=== PATIENT | female | born 1970 | race Caucasian/White ===

== ENCOUNTER 2022-06-11 04:48 | Outpatient (CLI) | payer OTHER, SELFPAY ==
[2022-06-11 07:52] LABS: Absolute Basophil Count 0.04 10^3/uL (0.0-0.2); Absolute Eosinophil Count 0.08 10^3/uL (0.0-0.7); Absolute Monocyte Count 0.44 10^3/uL (0.1-0.8); Absolute Neutrophil Count 2.15 10^3/uL (1.2-6.7); Basophils % 0.9; Eosinophils % 1.8; HCT 42.2 % (36.0-46.0); HGB 13.4 g/dL (11.2-15.7); Lymphocytes % 39.9; MCH 25.9 pg (27.0-33.0); MCHC 31.8 % (32.0-36.0); MCV 82 fL (80-95); MPV 10.3 fL (8.0-11.0); Monocytes % 9.8; Neutrophils % 47.6; Platelet Count 226 10^3/uL (130-400); RBC 5.17 10^6/uL (3.93-5.22); RDW 14.7 % (11.7-14.6); RDW-SD 43.8 fL; WBC 4.51 10^3/uL (4.4-10.8)
[2022-06-11 08:00] LABS: ESR 9 mm/hr (0-30)
[2022-06-11 08:58] LABS: ALT 25 U/L (14-59); AST 17 U/L (15-37); Albumin 3.8 g/dL (3.4-5.0); Alkaline Phosphatase 81 U/L (46-116); Anion Gap 5.9 mmol/L (3-11); BUN 16 mg/dL (7-18); Bilirubin, Total 0.2 mg/dL (0.2-1.0); CO2 29.1 mmol/L (21.0-32.0); CREATININE 1.1 mg/dL (0.55-1.02); Calcium 9.1 mg/dL (8.5-10.1); Calculated LDL 145 mg/dL (<100); Chloride 104 mmol/L (98-107); Cholesterol 234 mg/dL (<200); Estimated GFR 60.84 (mL/min/1.73m2); Glucose 87 mg/dL (74-106); HDL Cholesterol 70 mg/dL (40-60); Potassium 4.1 mmol/L (3.5-5.1); Sodium 139 mmol/L (136-145); TSH (W/Ref FT4) 2.09 uIU/mL (0.36-3.74); Total Protein 7.5 g/dL (6.4-8.2); Triglyceride 99 mg/dL (<150)
[2022-06-11 17:26] LABS: Rheumatoid Factor <8.6 IU/mL (<12.0)
[2022-06-12 10:20] LABS: Hepatitis C Ab w Rflx HCV PCR Negative (Negative)
[2022-06-12 10:29] LABS: HIV-1/2 Ag & Ab Screen Negative (Negative)
[2022-06-12 15:12] LABS: ANA Interpretation Negative (Negative)
== END 2022-06-11 04:49 | disposition home or self-care (01) ==
LOC: LBO 04:48
PROVIDERS: PCP Nurse Practitioner; Referring Provider Nurse Practitioner; Visit Provider Nurse Practitioner
DX: Z11.59 Encounter for screening for other viral diseases; E03.9 Hypothyroidism, unspecified; D64.9 Anemia, unspecified
CPT/HCPCS: 36415; 80053; 80061; 85652; 86803; 87389; 84443; 85025; 86038; 86431

== ENCOUNTER 2022-06-18 01:34 | Outpatient (CLI) | payer OTHER, SELFPAY ==
--- NOTE | 2022-06-18 16:00 | DI.MAMMO_ITS ---
Exam(s) MAMMO SCREENING EXAM: MAMMO SCREENING CLINICAL HISTORY: screening,Z12.39 TECHNIQUE: Bilateral full field digital CC and MLO mammographic images were obtained with 3D tomosyn thesis and utilizing computer aided detection (CAD). COMPARISON: There are no priors for comparison at this time. Should they become available, an adden dum will be issued at that time. FINDINGS: Masses/Architectural Distortion: None seen. Microcalcifications: No suspicious pleomorphic-type are seen. Benign type calcifications are seen in both breasts. Skin Thickening/Nipple Retraction: None. IMPRESSION: 1. No significant interval change with no specific features of malignancy noted. 2. Unless there is more urgent need, screening mammography is recommended, as per [employer] guidelines. BI-RADS Category 2 - Benign Findings Breast Density - Category C - Heterogeneously dense Breast density category C or D implies that the patient has dense breast tissue. Dense breast tissue is very common and is not abnormal but dense breast tissue can make it harder to find cancer on a ma mmogram. Also, dense breast tissue may increase their breast cancer risk. This information about the result of the mammogram report was provided to the patient to raise their awareness. Use this report when you speak with the patient about their risks for breast cancer, which includes their family hist ory. At that time, you may recommend for more screening tests (Ultrasound or MRI) as they might be us eful based on their risk. A negative radiographic report should not delay biopsy if a dominant or clinically suspicious mass is present. Up to ten percent of cancers are not identified on mammography. A negative report may reinforce clinical impression. Adenosis and dense breasts may obscure an underlying neoplasm. False positive reports average 6 to 10%. Patient will receive a letter notifying them of these results.
== END 2022-06-18 01:54 ==
LOC: DI 01:35
PROVIDERS: PCP Nurse Practitioner; Visit Provider Nurse Practitioner
DX: Z12.31 Encounter for screening mammogram for malignant neoplasm of breast (principal)
CPT/HCPCS: 77063; 77067

== ENCOUNTER → 2023-01-22 03:16 | Outpatient (CLI) | payer OTHER, SELFPAY ==
--- NOTE | 2023-01-22 07:08 | DI.RAD_ITS ---
Exam(s) XR KNEE LT 3V AP,LAT,MAX EXAM: XR KNEE LT 3V AP,LAT,MAX CLINICAL HISTORY: left knee injury 40 [place],s89.92xa. TECHNIQUE: 2D digital imaging was performed. Three views. COMPARISON: No exams were available for comparison FINDINGS: BONES: No acute fracture is present. No bony destructive lesion is seen. JOINTS: The knee is normally aligned. A small joint effusion is seen. Femoral tibial joint spaces a re maintained. Mild periarticular spurring. More prominent spurring at the patella low femoral join t which is narrowed. SOFT TISSUE: Normal. IMPRESSION: Degenerative changes greatest at the patellofemoral joint. DATA REPOSITORY: RADIATION DOSE DELIVERED:
== END ==
PROVIDERS: PCP Nurse Practitioner; Visit Provider Emergency Medicine
DX: M17.11 Unilateral primary osteoarthritis, right knee (principal)
CPT/HCPCS: 73562

== ENCOUNTER 2023-02-11 15:14 | Outpatient (CLI) | payer OTHER, SELFPAY ==
--- NOTE | 2023-02-11 08:15 | DI.RAD_ITS ---
Exam(s) XR KNEE LT 1V EXAM: XR KNEE LT 1V CLINICAL HISTORY: left knee pain. TECHNIQUE: 2D digital imaging was performed of the left knee. One images were obtained. Merchant, views were obtained. COMPARISON: CR XR KNEE LT 3V AP,LAT,MAX from 01/22/2023 FINDINGS: This is a limited examination with a single sunrise view. There is marked narrowing of the lateral p atellofemoral joint. There is a well corticated bony density lateral to the patella. IMPRESSION: Marked narrowing of the lateral patellofemoral joint. DATA REPOSITORY: RADIATION DOSE DELIVERED:
== END 2023-02-11 15:15 | disposition home or self-care (01) ==
LOC: DIORS 15:14
PROVIDERS: PCP Nurse Practitioner; Visit Provider Physician Assistant
DX: M25.861 Other specified joint disorders, right knee
CPT/HCPCS: 73560

== ENCOUNTER 2023-02-25 10:39 | Day surgery (SDC) | payer OTHER, SELFPAY ==
--- NOTE | 2023-02-24 13:28 | W.PM.HP.N ---
Date of service: 02/25/23 Time of Service: 11:35 Assessment and Plan Assessment and plan (1) Graves disease: (2) Ulcerative proctitis: Assessment and plan: We will plan on doing 10 cm biopsies. Patient can respect results in 2 to 3 weeks time. Informed consent is obtained for the procedural (explained in simple layman's terms that?the pt and/or family could understand) explaining risks vs benefits and alternatives to the procedure and consequences if we do not do the procedure and need/rational for the procedure. Risks include but are not limited to: bleeding, infection, perforation of colon.? This would necessitate emergency surgery to repair the damage w/ possible ostomy; and other associated complications w/ the required surgery. ? Also complications of anesthesia including aspiration, CT/CVA/. I discussed with the?patient would they could expect during the procedure, post procedure and recovery time and risks.? The patient understands that they need to have a ride home after the procedure.? (3) Hypothyroidism: Status: Chronic History of Present Illness Narrative: clinic visiti 01/23: 52 y/o female with history of ulcerative proctitis, presents for colonoscopy screening pre-op. Her last screening was in 2018, which she believes did not have any pathology. She denies a family history of colon cancer. She denies any changes in bowel habits including bloody or black tarry stools, abdominal pain, diarrhea or constipation. She denies having any recent flares. She denies constitutional symptoms. She was last seen by [facility] December 2022 at which time recommendation was to proceed with a colonoscopy for restaging and that if there was no significant luminal mucosal inflammation and they would continue with mesalamine topical therapy as needed for flares. She denies chest pain, palpitations, dyspnea or dyspnea with exertion. She denies prior history or family history of adverse reactions or complications with anesthesia. The patient denies any history of stroke, CT, seizures, bleeding or clotting disorders. She denies having any implanted metal in her body. Patient was initially diagnosed in 2002. She takes mesalamine when she has flares only. She may go a couple years without a flare. The flare seem to be triggered by gluten so she does not do a gluten-free diet. When she does get a flare she gets abdominal pain bleeding, diarrhea, and hives/rash on the elbows as well as tenesmus. She has not had a problem with anesthesia in the past. Her only surgeries are a tonsillectomy and previous colonoscopies. Patient is here today for colonoscopy for routine surveliance for ulcerative procitis.??? They completed a bowel prep with just a clear yellow residual effluent.? They not having any chest pain or shortness of breath, currently.? They are not experiencing any fever or chills.? They deny any productive cough or upper respiratory tract infection signs or symptoms.? They are not having abdominal pain, or nausea and vomiting.? They have not had any changes in medications, past medical history or past surgical history since previously being seen in the office. They have not had any accidents or have been in the ER since the clinic pre-operative evaluation. ??I reviewed the procedure with the patient today, including risks and benefits of the procedure, and what they could expect at home for recovery.? All questions are answered to the patient?s satisfaction today, and they are stable to proceed with the proposed procedure. Review of Systems All systems reviewed & are unremarkable except as noted in HPI and below PFSH All Active Problems Patellofemoral arthritis of left knee (Acute) Left knee injury (Acute) Hypothyroidism (Chronic) Anxiety (Chronic) Depression (Chronic) Anemia (Chronic) Medical History Overweight Palpitation Graves disease Ulcerative proctitis Other specified abnormal uterine and vaginal bleeding Surgical History History of tonsillectomy (~04/21/00) [facility] Family History Maternal Grandmother Stroke Paternal Grandfather Depression Mother T-cell lymphoma Father Bipolar disorder Brother Bipolar disorder Social History Smoking/Tobacco Use Status: Never Second Hand Exposure: No Smoking risk assessment performed?: Yes Alcohol Intake: never Counseling given: No Drug use: Daily Substance use type: marijuana and other Details: gummies at night Counseling given: Yes Details: THC Edible Gummies Daily Adopted: No Caregiver/Support person: No Foster care: No Household members: spouse Housing: apartment Number of Children: 3 number of grandchildren: 0 Communication Needs: None Education Level: college Details: Bachelors Degree current occupation: RN at [employer] Pets and animals: No What is your relationship status?: How often do you talk on the phone with friends or family?: three or more times per week How often do you get together with friends or relatives?: three or more times per week Do you belong to any clubs or organized social groups?: yes Panel score (0-1 are the most socially isolated patients): 3 NHANES result reviewed/action taken: No What type of physical activity do you participate in: bicycling, regular exercise and other Details: skis (nordic), hikes Duration: 60-90 minutes/day Frequency: 5-6 times per week Seatbelt use: always Helmet use: Yes Drive intox or ride w/intox medical delivery driver: No Working smoke detector in home: Yes Fire extinguisher in home: Yes Carbon monox detector in home: Yes Do you feel safe at home: Yes Do you feel safe in your relationship?: Yes Meds Allergies and Home Medications Allergies Allergy/AdvReac Type Severity Reaction Status Date / Time gluten AdvReac Severe triggers Verified 02/25/23 11:29 ulcerative colitis Home Medications Medication Instructions Recorded Confirmed Type bupropion HCl 300 mg 24 hr tablet, 300 mg PO QAM #90 tabs 05/30/22 02/25/23 Rx extended release escitalopram oxalate 10 mg tablet 10 mg PO DAILY #90 tabs 05/30/22 02/25/23 Rx levothyroxine 150 mcg tablet 150 mcg PO DAILY #90 tabs 06/12/22 02/25/23 Rx Exam Narrative Exam Narrative: PHYSICAL EXAM GENERAL APPEARANCE: Alert, healthy appearance, oriented, x 3,? in no acute distress HYDRATION: Well hydrated HEAD, EYES, EARS, NECK, THROAT: Head is normocephalic, pupils equal, round, reactive to light and accommodation, ocular movement intact, sclera clear and no jaundice. ?Dentition intact. No sore throat.? LUNGS: normal respiration/normal chest excursion. ?Clear to auscultation bilaterally. ?HEART: Regular rate and rhythm. no murmurs ABDOMEN: soft and non-tender to palpation.? Normal bowel sounds.? Time Spent Time spent with Patient: <40 minutes Time was spent: preparing to see the patient(eg.review tests), obtaining and/or reviewing separately otained hiistory, ordering medications,tests, procedures, referring, communicating with other health transitions rn care coordinator, indepentently interpreting results, counseling the patient and care coordination
--- NOTE | 2023-02-24 13:31 | PDOC.DSDIS_ITS ---
Date of service: 02/25/23 Time of Service: 14:02 Discharge Plan Disposition Patient Disposition: Home Condition: Good Discharge Details Reason For Visit: colon scope Attending Provider: Krys Metcalf Primary Care Provider: Arlette Herrera Home Meds and New Rx's Prescriptions: No Action bupropion HCl 300 mg tablet extended release 24 hr 300 mg PO QAM Qty: 90 3RF escitalopram oxalate 10 mg tablet 10 mg PO DAILY Qty: 90 3RF levothyroxine 150 mcg tablet 150 mcg PO DAILY Qty: 90 3RF Discharge Instructions Additional Instructions: DSU Colonoscopy Post- Op Instructions Instructions for Everyone who is given Anesthesia: For your safety, please do the following for the next twenty-four (24) hours: *Do Not operate a motor vehicle (car, truck, motorcycle, etc.) *Do Not drink alcoholic beverages or use any recreational drugs for the first 24 hours or while taking pain medications. The medications in your body may have a reaction that can be dangerous. *Do Not make any important decisions or sign any important papers. Findings: colon appears grossly normal today Follow up: My office will send you the biopsy results in 2 to 3 weeks time. Repeat colonoscopy in 2 years time 1. No lifting over 20 pounds or strenuous activity for the first 24 hours after your procedure. After 24 hours there are no restrictions on your activity but you may feel fatigued for a few days. 2. After you arrive home you may have a light meal and return to your normal diet as you can tolerate it without feeling sick to your stomach. 3. You may have a bloated, gaseous feeling in your belly (abdomen) after a colonoscopy. Passing gas and belching will help. Walking or lying down on your left side with your knees flexed may relieve the discomfort. Call the office at [phone] (Office) or [phone] (Hospital) right away if you notice any of the following: a.Vomiting of blood or ?coffee ground stools?. b.Rectal bleeding 1Tbsp, blood clots or continuous bleeding. c.Severe belly (abdominal) pain. d.A hard distended belly (abdomen) and an inability to pass gas. 4. Please don?t expect to have a normal BM (bowel movement) for 2-3 days after your procedure. 5. If there are questions regarding the findings of your procedure, please contact your doctor 6. If you are unable to contact your doctor with a problem, contact the hospital at [phone]. 7. Continue all your regular medications unless directed otherwise. I understand the above instructions and have no questions. Signature of Patient or Adult Escort Name of Responsible Adult Escort Signature of Nurse Date/Time Activity:: see above Diet:: see above Discharge Orders Discharge Orders: Discharge Order (Routine); Ordered 02/25/23 Ordered By: Krys Metcalf DS: Diagnosis Discharge Diagnosis (1) Graves disease: (2) Ulcerative proctitis: Asessment and Plan: The patient is seen and examined after their colonoscopy.? The patient has been able to pass gas.? They are not having abdominal pain.? They have been able to tolerate liquids and a snack.? They do not have any nausea or vomiting.? They are not having any chest pain or shortness of breath.??? They are not having any rectal bleeding. Their vital signs have been stable-see nursing notes. We discussed findings during their colonoscopy, and any biopsies that were done/polyps that were removed. The patient will be sent a letter with any biopsy results, and when to repeat the colonoscopy.-see discharge instructions. Patient was given explicit instructions to follow-up regarding colonoscopy-refer to discharge instructions.? We reviewed resumption of medications. Patient verbalized understanding and discharged in stable and satisfactory condition- See nursing notes. (3) Hypothyroidism: Status: Chronic
--- NOTE | 2023-02-24 13:55 | W.COLOREPORT ---
Date of service: 02/25/23 Time of Service: 14:03 Colonoscopy Report Date of procedure: 02/25/23 Pre-op diagnosis general: ulcerative procitis Post-op diagnosis procedure note: same Surgeon: Krys Metcalf Anesthesia Type: General:No Airway Estimated blood loss (mL): 2 Pathology: other Complications: None Disposition: same day Prep: Miralax/Dulcolax Retraction Time: 25 Procedure Description: After informed consent was obtained the patient was taken to the procedure room and placed in a left decubitous position. Monitors were applied and a time out was done. The patients name, date of , procedure, allergies to medications and metal in their body was reviewed. The patient was then sedated. Once sedated and comfortable a rectal exam was done. External exam was normal. Internal exam revealed a normal sphincter tone and no palpable masses. The scope was then introduced and retrofelexed. No internal hemorrhoids were identified. The scope was then advanced to the cecum w/out difficulty. The TI and appendiceal orifice were identified. The prep was BBPS 3 in all surgeons for a total of 9. The scope was then slowly retracted over 25 minutes back into the rectum. There are no polyps, AVMs, or diverticula visualized today. The mucosa appears pink and healthy with a normal vascular pattern. Biopsies are taken from the cecum/terminal ileum/90, 80, 70, 60, 50, 40, 30, 20 cm and the rectum. All specimens were retrieved and no bleeding is noted. The scope was removed and the patient was woken up and taken back to Same day surgery in stable condition. The patient tolerated the procedure well and there were no immediate complications. Follow up: The patient should follow up in 2 years unless they develop changes in bowel habits or other new gastrointestinal complaints.
[2023-02-25 11:24] VITALS: BP 102/69; PULSE 57; RESP 18; TEMP 36.6; O2SAT 98
[2023-02-25] MEDS: Lactated Ringers 1,000 ML 80 ML IV (11:56)
--- NOTE | 2023-02-25 12:50 | ANES.PREOP_ITS ---
General Info Date of Service Date Performed: 02/25/23 Height: 5 ft 6 in Weight: 88.2 kg Body Mass Index (BMI): 31.4 Surgical Procedure: Operation Date: 02/25/23 12:05 Proposed Procedure Side Surgeon george Metcalf, Meds Allergies and Home Medications Allergies Allergy/AdvReac Type Severity Reaction Status Date / Time gluten AdvReac Severe triggers Verified 02/25/23 11:29 ulcerative colitis Home Medication Medication Instructions Recorded bupropion HCl 300 mg 24 hr tablet, 300 mg PO QAM #90 tabs 05/30/22 extended release escitalopram oxalate 10 mg tablet 10 mg PO DAILY #90 tabs 05/30/22 levothyroxine 150 mcg tablet 150 mcg PO DAILY #90 tabs 06/12/22 Current Visit Medications: Current Medications Generic Name Dose Route Start Last Admin Trade Name Freq PRN Reason Stop Dose Admin Hyoscyamine Sulfate 0.125 mg 02/25/23 01:32 Hyoscyamine 0.125 Mg Sl/Oral/Chew SL 03/27/23 01:31 DIRECTED PRN Ringer's Solution 1,000 mls @ 80 mls/hr 02/25/23 06:00 02/25/23 11:56 IV 02/25/23 23:59 80 mls/hr INFUSION CARLOS Administration IV Miscellaneous Supplies 1 each 02/25/23 06:00 Iv Access IV 02/25/23 23:59 DIRECTED CARLOS Ondansetron HCl 4 mg 02/25/23 01:32 Ondansetron 4 Mg/2 Ml Vial IVP 03/27/23 01:31 Q4H PRN PRN Nausea / Vomiting Sodium Chloride 0 ml 02/25/23 06:00 Normal Saline Flush 10 Ml Syr IV 02/25/23 23:59 PRN PRN Sodium Chloride 0 ml 02/25/23 06:00 Normal Saline 10 Ml Vial IJ 02/25/23 23:59 DIRECTED PRN Sterile Water 0 ml 02/25/23 06:00 Water,Injection,Sterile 10 Ml Vial IJ 02/25/23 23:59 DIRECTED PRN PFSH Active Problems Active Problems: Problem Status Onset Code Patellofemoral arthritis of left knee M17.12 Left knee injury S89.92XA Hypothyroidism E03.9 Anxiety F41.9 Depression F32.A Anemia D64.9 Medical History Medical History Overweight Palpitation Graves disease Ulcerative proctitis Other specified abnormal uterine and vaginal bleeding Surgical History Surgical History History of tonsillectomy (~04/21/00) [facility] Tobacco Smoking/Tobacco Use Status: Never Passive smoking exposure: No Second hand exposure: No Alcohol Alcohol Intake: never Substance Use Substance use: Daily Substance use type: marijuana and other Details: gummies at night Details: THC Edible Gummies Daily Vital Signs and Lab Results Vital Signs Most Recent Vital Signs in EMR: Most Recent Vital Signs Temp Pulse Resp BP Pulse Ox 36.6 C 57 L 18 102/69 98 02/25/23 11:24 02/25/23 11:24 02/25/23 11:24 02/25/23 11:24 02/25/23 11:24 Lab Results Blood Type / Crossmatch: No Data to Display Complete Blood Count: No Data to Display Complete Metabolic Panel: No Data to Display Liver Function Panel: No Data to Display Coagulation Panel: No Data to Display Cardiac Panel: No Data to Display Arterial Blood Gas: No Data to Display Venous Blood Gas: No Data to Display Pancreas Panel: No Data to Display Thyroid Panel: No Data to Display Infectious Disease: No Data to Display Blood Cultures: No Data to Display Toxicology Panel: No Data to Display Panel: No Data to Display Anesthesia Assessment and Plan Anesthesia History Personal History: No History of Anesthesia Complications Family History: No Family History of Anesthesia Complications Exercise Tolerance Exercise Tolerance: Metabolic Equivalents>4 Pertinent Negatives Pertinent Negatives: No Symptoms of GERD, No Major Cardiovascular Symptoms or Complaints, No Major Pulmonary Symptoms or Complaints and No History of CVA/TIA Cardiac & Pulmonary Exam Cardiac Exam: Normal S1/S2 Heart Sounds Pulmonary Exam: Clear Bilateral Breath Sounds Implantable Cardiac Device Does patient have a Pacemaker or an ICD?: No Airway Exam Known Difficult Airway: No Mallampati Class: 2 Mouth Opening: Normal (> 3cm) Thyromental Distance: Greater than 3 cm Neck Range of Motion: Full ROM Neck Circumference: Normal Teeth Condition: Normal Dentition ASA Classification ASA Score: ASA 2 Emergency Case?: No NPO Status NPO Status: NPO Clears >2 hours, Solids >8 hours Status Status: Not Relevant due to Medical History Anesthesia Plan Resuscitation Status: Full Code Anesthesia Technique: General Anesthesia Airway Planned: Natural Airway Monitors Used: Standard Monitors
[2023-02-25 12:55] VITALS: BMI 31.4
--- NOTE | 2023-02-25 13:34 | BOWEL_PTH ---
PATIENT: Allie Jeter LOC: [facility] U#:[id number] AGE/SX: 52/F ROOM: RE02/25/[address]: Krys Metcalf : 1970 BED: DIS: 02/25/2023 SPEC #: [id number] RECD: 02/25/23 16:11 STATUS: CAM WALDROP #: [id number] RASHAWN: 02/25/23 13:[address]: Krys Metcalf DEPT: Surgical Specimen RECD BY: Violet Blancas ENTERED: 02/25/23 16:12 SP TYPE: Bowel OTHR DR: Arlette Herrera APRN Tissues: 1 - BIOPSY BOWEL 2 - BIOPSY BOWEL 3 - BIOPSY BOWEL 4 - BIOPSY BOWEL 5 - BIOPSY BOWEL 6 - BIOPSY BOWEL 7 - BIOPSY BOWEL 8 - BIOPSY BOWEL 9 - BIOPSY BOWEL 10 - BIOPSY BOWEL 11 - BIOPSY BOWEL Procedures: GROSS AND MICRO LEVEL 4 Comments: [id number]
[2023-02-25 13:58] VITALS: BP 102/63; PULSE 66; RESP 16; TEMP 36.6; O2SAT 100
--- NOTE | 2023-02-25 14:13 | W.ANESPOSTOP ---
Postoperative Evaluation Date, Time and Location Date Performed: 02/25/23 Time Performed: 14:00 Patient Location: Day Surgery Unit Vital Signs Most Recent Imported Vital Signs: Most Recent Vital Signs Temp Pulse Resp BP Pulse Ox 36.6 C 66 16 102/63 100 02/25/23 13:58 02/25/23 13:58 02/25/23 13:58 02/25/23 13:58 02/25/23 13:58 Pain Score Most Recent Pain Score: Most Recent Pain Score Pain Level 0 02/25/23 13:58 Assessment Mental Status: Awake (Alert & Oriented to Patient Baseline) Airway and Respiratory Function: Patent airway with normal (patient baseline) respiratory exam Cardiovascular Function: Hemodynamically Stable Hydration Status: Adequately Hydrated Nausea & Vomiting: No Nausea or Vomiting Pain: Pt. Denies Any Pain Peripheral Nerve Block: Patient did not receive a nerve block
== END 2023-02-25 14:35 | disposition home or self-care (01) ==
PROVIDERS: PCP Nurse Practitioner; Visit Provider Surgery
PROC: 0DJD8ZZ Inspection of Lower Intestinal Tract, Via Natural or Artificial Opening Endoscopic (ICD-10-PCS; CPT 45378; principal; 2023-02-25 12:00)
DX: Z12.11 Encounter for screening for malignant neoplasm of colon (principal); K51.20 Ulcerative (chronic) proctitis without complications; K63.89 Other specified diseases of intestine
CPT/HCPCS: 45380; 88305; J2001; J2704

== ENCOUNTER 2023-06-03 14:45 | Outpatient (REF) | payer OTHER, SELFPAY | END 2023-06-03 14:46 | disposition home or self-care (01) | LOC: LBN 14:45 | PROVIDERS: PCP Nurse Practitioner; Visit Provider Family Medicine | DX: J34.89 Other specified disorders of nose and nasal sinuses (principal) | CPT/HCPCS: 87070; 87205 ==

== ENCOUNTER 2023-07-29 18:10 | Outpatient (REF) | payer OTHER, SELFPAY ==
--- NOTE | 2023-07-29 17:00 | PAPFT_PTH ---
PATIENT: Allie Jeter LOC: [facility] U#:[id number] AGE/SX: 53/F ROOM: RE07/29/[address]: Arlette Herrera APRN : 1970 BED: DIS: 07/29/2023 SPEC #: [id number] RECD: 07/29/23 18:18 STATUS: CAM RESal #: [id number] RASHAWN: 07/29/23 17:[address]: Arlette Herrera DEPT: [facility] Cytology RECD BY: Violet Blancas Tissues: 1 - CX/ENDOCX FOR PAP SMEARS Procedures: PAP THIN PREP/UVM Screening HPV DNA PROBE Comments: [id number]
== END 2023-07-29 18:11 | disposition home or self-care (01) ==
LOC: LBN 18:10
PROVIDERS: PCP Nurse Practitioner; Visit Provider Nurse Practitioner
DX: Z12.4 Encounter for screening for malignant neoplasm of cervix (principal); Z11.51 Encounter for screening for human papillomavirus (HPV)
CPT/HCPCS: 88142; 87624

== ENCOUNTER 2023-08-06 10:38 | Outpatient (CLI) | payer OTHER, SELFPAY ==
[2023-08-06 10:29] LABS: HCT 38.8 % (36.0-46.0); HGB 12.2 g/dL (11.2-15.7); MCH 25.5 pg (27.0-33.0); MCHC 31.4 % (32.0-36.0); MCV 81 fL (80-95); MPV 9.6 fL (8.0-11.0); Platelet Count 213 10^3/uL (130-400); RBC 4.78 10^6/uL (3.93-5.22); RDW 14.7 % (11.7-14.6); RDW-SD 43.3 fL; WBC 4.39 10^3/uL (4.4-10.8)
[2023-08-06 11:00] LABS: ALT 26 U/L (14-59); AST 19 U/L (15-37); Albumin 3.5 g/dL (3.4-5.0); Alkaline Phosphatase 84 U/L (46-116); Anion Gap 4.6 mmol/L (3-11); BUN 23 mg/dL (7-18); Bilirubin, Total 0.43 mg/dL (0.2-1.0); CO2 30.4 mmol/L (21.0-32.0); Calcium 9.1 mg/dL (8.5-10.1); Calculated LDL 125 mg/dL (<100); Chloride 104 mmol/L (98-107); Cholesterol 206 mg/dL (<200); Estimated GFR 67.78 (mL/min/1.73m2); Glucose 93 mg/dL (74-106); HDL Cholesterol 75 mg/dL (40-60); Potassium 3.8 mmol/L (3.5-5.1); Sodium 139 mmol/L (136-145); TSH (W/Ref FT4) 0.13 uIU/mL (0.36-3.74); Total Protein 6.7 g/dL (6.4-8.2); Triglyceride 32 mg/dL (<150)
[2023-08-06 11:23] LABS: FREE T4 1.21 ng/dL (0.76-1.46)
== END 2023-08-06 10:39 | disposition home or self-care (01) ==
LOC: LBO 10:38
PROVIDERS: PCP Nurse Practitioner; Visit Provider Nurse Practitioner
DX: E03.9 Hypothyroidism, unspecified (principal); E78.5 Hyperlipidemia, unspecified; F32.A Depression, unspecified
CPT/HCPCS: 36415; 80053; 80061; 85027; 84439; 84443

== ENCOUNTER → 2023-08-08 00:28 | Outpatient (CLI) | payer OTHER, SELFPAY ==
--- NOTE | 2023-08-08 13:22 | DI.MAMMO_ITS ---
Exam(s) MAMMO SCREENING EXAM: MAMMO SCREENING CLINICAL HISTORY: screening,z12.39. TECHNIQUE: Bilateral full field digital CC and MLO mammographic images were obtained with 3D tomosyn thesis and utilizing computer aided detection (CAD). COMPARISON: Prior mammogram of June 2022 was reviewed. There are no other mammograms for comparison. FINDINGS: There has been no significant change in the appearance and distribution of the fibroglandular tissue. Numerous benign-appearing microcalcifications are again noted anteriorly in both breasts. There are no new spiculated masses nor new malignant appearing microcalcification groups. There is no significant architectural distortion nor skin thickening-retraction. IMPRESSION: Benign findings. No radiographic evidence of malignancy. BI-RADS Category 2 - Benign Findings Breast Density - Category C - Heterogeneously dense Breast density Category C or D implies that the patient has dense breast tissue. Dense breast tissue can make it harder to find cancer on a mammogram. Dense breast tissue is also associated with an incr eased risk of breast cancer. This information about the result of the mammogram report was provided to the patient to raise their awareness. Use this report when you speak with the patient about their risks for breast cancer, which includes their family history. At that time, you may recommend additional screening tests (Ultrasoun d or MRI) as these tests may add significant information. A negative radiographic report should not delay biopsy if a dominant or clinically suspicious mass is present. Up to ten percent of cancers are not identified on mammography. A negative report may reinforce clinical impression. Adenosis and dense breasts may obscure an underlying neoplasm. False positive reports average 6 to 10%. Patient will receive a letter notifying them of these results.
== END ==
PROVIDERS: PCP Nurse Practitioner; Visit Provider Nurse Practitioner
DX: Z12.39 Encounter for other screening for malignant neoplasm of breast (principal)
CPT/HCPCS: 77063; 77067

== ENCOUNTER 2024-08-22 04:24 | Outpatient (CLI) | payer OTHER, SELFPAY ==
[2024-08-22 04:49] LABS: Abs Immature Grans 0.01 10^3/uL (0.0-0.06); HCT 40.3 % (36.0-46.0); HGB 12.7 g/dL (11.2-15.7); Immature Grans % 0.2 %; MCH 25.5 pg (27.0-33.0); MCHC 31.5 % (32.0-36.0); MCV 81 fL (80-95); MPV 9.7 fL (8.0-11.0); Platelet Count 210 10^3/uL (130-400); RBC 4.98 10^6/uL (3.93-5.22); RDW 14.6 % (11.7-14.6); RDW-SD 43.2 fL; WBC 5.50 10^3/uL (4.4-10.8)
[2024-08-22 04:50] LABS: Glucose Negative (Negative)
[2024-08-22 04:56] LABS: C & S Indicated? No; RBC 0-2 HPF (0-2); WBC Negative HPF (0-5)
[2024-08-22 05:20] LABS: ALT 27 U/L (14-59); AST 18 U/L (15-37); Albumin 3.7 g/dL (3.4-5.0); Alkaline Phosphatase 117 U/L (46-116); Anion Gap 4.1 mmol/L (3-11); BUN 29 mg/dL (7-18); Bilirubin, Total 0.2 mg/dL (0.2-1.0); CO2 31.9 mmol/L (21.0-32.0); Calcium 8.9 mg/dL (8.5-10.1); Calculated LDL 150 mg/dL (<100); Chloride 101 mmol/L (98-107); Cholesterol 241 mg/dL (<200); Estimated GFR 67.36 (mL/min/1.73m2); Glucose 85 mg/dL (74-106); HDL Cholesterol 56 mg/dL (>or=50); Potassium 4.0 mmol/L (3.5-5.1); Sodium 137 mmol/L (136-145); TSH 0.28 uIU/mL (0.36-3.74); Total Protein 7.2 g/dL (6.4-8.2); Triglyceride 177 mg/dL (<150)
[2024-08-22 05:22] LABS: Hemoglobin A1C 5.6 % (<5.7)
== END 2024-08-22 04:25 | disposition home or self-care (01) ==
PROVIDERS: Family Medicine; PCP Nurse Practitioner; Visit Provider Obstetrics & Gynecology
DX: Z13.9 Encounter for screening, unspecified (principal); N18.2 Chronic kidney disease, stage 2 (mild); E03.9 Hypothyroidism, unspecified
CPT/HCPCS: 80053; 80061; 81003; 81015; 83036; 84443; 85025

== ENCOUNTER 2024-10-04 03:20 | Outpatient (CLI) | payer OTHER, SELFPAY ==
--- NOTE | 2024-10-04 08:25 | DI.MAMMO_ITS ---
Exam(s) MAMMO SCREENING EXAM: MAMMO SCREENING CLINICAL HISTORY: screening Z12.39 TECHNIQUE: Bilateral full field digital CC and MLO mammographic images were obtained with 3D tomosynthesis and utilizing computer aided detection (CAD). COMPARISON: Comparison is made with prior examinations. FINDINGS: Masses/Architectural Distortion: No suspicious masses or areas of architectural distortion are present. Microcalcifications: No suspicious pleomorphic-type are seen. There are stable benign-appearing calcifications in both breasts. Skin Thickening/Nipple Retraction: None. IMPRESSION: 1. No significant interval change with no specific features of malignancy noted. 2. Unless there is more urgent need, screening mammography is recommended, as per [employer] guidelines. BI-RADS Category 2 - Benign Findings Breast Density - Category C - The breast are heterogeneously dense, which may obscure small masses. Breast density Category C or D implies that the patient has dense breast tissue. Dense breast tissue can make it harder to find cancer on a mammogram. Dense breast tissue is also associated with an increased risk of breast cancer. This information about the result of the mammogram report was provided to the patient to raise their awareness. Use this report when you speak with the patient about their risks for breast cancer, which includes their family history. At that time, you may recommend additional screening tests (Ultrasound or MRI) as these tests may add significant information. A negative radiographic report should not delay biopsy if a dominant or clinically suspicious mass is present. Up to ten percent of cancers are not identified on mammography. A negative report may reinforce clinical impression. Adenosis and dense breasts may obscure an underlying neoplasm. False positive reports average 6 to 10%. Patient will receive a letter notifying them of these results.
== END 2024-10-04 03:40 ==
LOC: DI 03:20
PROVIDERS: PCP Nurse Practitioner; Visit Provider Obstetrics & Gynecology
DX: Z12.31 Encounter for screening mammogram for malignant neoplasm of breast (principal); R92.333 Mammographic heterogeneous density, bilateral breasts
CPT/HCPCS: 77063; 77067

== ENCOUNTER 2024-11-11 04:03 | Outpatient (CLI) | payer OTHER, SELFPAY ==
[2024-11-16 14:26] LABS: Apolipoprotein B, Serum 116 mg/dL (48-124); Beta VLDL Cholesterol Not Detected mg/dL (<15); Beta VLDL Triglycerides Not Detected mg/dL (<15); Cholesterol, Total, CDC 274 mg/dL; Chylomicron Cholesterol Not Detected; Chylomicron Triglycerides Not Detected; HDL Cholesterol, CDC 73 mg/dL (>=50); LpX Not detected; Triglycerides, CDC 79 mg/dL; VLDL Triglycerides 32 mg/dL (<120)
== END 2024-11-11 04:04 | disposition home or self-care (01) ==
LOC: LBO 04:03
PROVIDERS: PCP Nurse Practitioner; Visit Provider Family Medicine
DX: E78.00 Pure hypercholesterolemia, unspecified (principal)
CPT/HCPCS: 36415; 80061; 83695; 82172; 82664

== ENCOUNTER 2024-11-28 02:09 | Emergency (ER) | payer OTHER, SELFPAY ==
[2024-11-28 02:12] VITALS: PULSE 53; RESP 16; TEMP 36.5; O2SAT 97
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
[2024-11-28] MEDS: Acetaminophen 325 MG TAB 650 MG PO (02:32)
[2024-11-28] MEDS: Ibuprofen 400 MG TAB PO (02:32)
[2024-11-28 02:33] VITALS: BP 88/53
[2024-11-28 02:50] VITALS: BP 104/70
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
== END 2024-11-28 03:08 | disposition home or self-care (01) ==
PROVIDERS: Emergency Provider Student in an Organized Health Care Education/Training Program; PCP Nurse Practitioner
DX: R07.81 Pleurodynia (principal)
CPT/HCPCS: 99283 ×2; 71046

== ENCOUNTER 2024-12-07 06:45 | Day surgery (SDC) | payer OTHER, SELFPAY ==
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
--- NOTE | 2024-12-06 14:53 | W.PM.DSUDISC ---
Date of service: 12/07/24 Discharge Plan Disposition Patient Disposition: Home Condition: Good Discharge Details Reason For Visit: Lipoma excision Attending Provider: Ten Clemens Primary Care Provider: Arlette Herrera Home Meds and New Rx's Prescriptions: Continued albuterol sulfate [Ventolin HFA] 90 mcg/actuation HFA aerosol inhaler 2 puff inhalation QID PRN (Reason: shortness of breath or wheezing) Qty: 8.5 5RF bupropion HCl 300 mg tablet extended release 24 hr 300 mg PO QAM Qty: 90 3RF escitalopram oxalate 10 mg tablet 10 mg PO DAILY Qty: 90 3RF levothyroxine [Synthroid] 137 mcg tablet 137 mcg PO DAILY 90 Days Qty: 90 4RF Rx Instructions: Take one 137 mcg tablet by mouth on an empty stomach budesonide-formoterol [Symbicort] 160-4.5 mcg/actuation HFA aerosol inhaler 2 puff inhalation BID 30 Days Qty: 10.2 4RF Rx Instructions: Inhale 2 puffs twice daily using spacer as directed. rosuvastatin 5 mg tablet 5 mg PO DAILY 90 Days Qty: 90 4RF Rx Instructions: Take one 5 mg tablet once daily by mouth as directed. spacer for inhaler 1 inh continuous inhalation BID Qty: 1 0RF Discharge Instructions Additional Instructions: Allie, it was good seeing you today, and hope you make a quick and uneventful recovery from the procedure. Things went very smoothly. As suspected, you did have 3 lipomas. All of these were relatively small as far as lipomas go, and not have any worrisome features. They are completely excised, and the wounds are closed with multiple layers of stitches. I would expect to get some bruising around the incision sites over the next few days. That is extremely common and nothing to worry about. Using ice packs over the incisions will help with some of this bruising and swelling. I also recommend alternating Tylenol and ibuprofen [id number] for the next few days as the anesthetic wears off. If you need anything at all, please do not hesitate to call, otherwise look forward to seeing you on the at 7:30 AM in routine follow-up. 1. Resume all of your regular medications. 2. Use ice packs over the incisions to help with pain and swelling. 3. Alternate [id number] Tylenol and ibuprofen every 6 hours for the first 2 days. Then use them as needed 4. Leave bandages in place for 24 hours, then remove. 5. Shower with warm soapy water. Pat dry. Replace the Band-Aids if necessary for your comfort 6. No soaking or tub baths until I see you in the office. 7. No heavy lifting until I see you in the office. 8. Call the office (or go directly to the emergency room after hours) if you notice any of the following: Develop chills (warm to touch), or if you have a thermometer and your temperature is above 101 Difficulty breathing or difficultly swallowing Persistent vomiting Any bleeding ? exceeding one tablespoon 9. Call your physician if the site where your intravenous was started becomes red, swollen, painful, and warm to touch. Stand Alone Forms: Anesthesia Discharge Inst., Elizabeth Blanca ([facility]) Referrals: Ten Clemens MD [ [facility] STAFF PHYSICIAN, Surgery] - 12/20/24 7:30 am Activity:: Activity as Tolerated Remove Dressings/Wound Care:: 24 hours Shower/Bathe:: 24 hours Diet:: As Tolerated Discharge Orders Discharge Orders: Discharge Order (Routine); Ordered 12/06/24 Ordered By: Ten Clemens DS: Diagnosis Discharge Diagnosis (1) Lipoma: Status: Acute Asessment and Plan: Postoperative outpatient follow-up
--- NOTE | 2024-12-06 14:57 | ROE_ITS ---
Operative Note Operative Note PRE-OP DIAGNOSIS: Symptomatic lipomas POST-OP DIAGNOSIS: same PROCEDURE: Excision and primary closure of lipomas x 3 SURGEON: Ten Clemens CLIENT PROJECT COORDINATOR: Greer Mcnulty ANESTHESIA TYPE: Local By Surgeon and MAC Refer to Anesthesia Record ESTIMATED BLOOD LOSS: 10 PATHOLOGY: none sent COMPLICATIONS: None Patient was transported to: same day Patient's condition: stable Indications: Chance is a 54-year-old woman with multiple lipomas. Three of these cause discomfort and are reasonable for excision and primary closure. Findings: Simple lipomas Procedure Description: I met with Allie in the preoperative area, and we reviewed the lesions in question. 2 of these were on the left flank, and the other is on the right flank. We marked them together and are in agreement. We reviewed the plan for the procedure, she had the chance to ask any other questions. Next, we moved sharmila mock to the operating room. She was assisted to the right lateral decubitus position on the stretcher, and she was padded and supported appropriately. Once she was comfortable, anesthesia was initiated. I then prepped the left flank. I established a generous field blocks over the 2 lesions using local anesthetic mixed with Exparel. I started on the lower lesion, which is the smaller of the 2. I made a 2 cm skin incision and dissected down into the subcutaneous fat where we encountered a well-circumscribed round simple appearing lipoma. The surrounding soft tissue was dissected away, and the lipoma was removed. This was hemostatic. The lipoma itself was about 1.5 cm x 1.5 cm. All features were consistent with a simple lipoma. No specimen was sent. The site was irrigated, and reapproximated with subcuticular stitches. Next, I turned my attention to the larger lesion. I made a 6 cm skin incision and dissected down into the subcutaneous fat. Again, a well-circumscribed simple appearing lipoma was encountered. Great care was taken to ensure its complete dissection from the surrounding soft tissues, and it was completely excised. Bovie electrocautery was used to ensure some hemostasis. The mass itself is about 5 cm in its longest dimension by 2 cm in its widest. The deeper tissue was reapproximated with interrupted Vicryl sutures, and the skin was closed with a running subcuticular stitch. We applied dressings, and then gently rolled Dominique back into the supine position before rolling her onto her left flank. Again, great care was taken to ensure that she was padded safely. This area was prepped and draped. Again, using local anesthetic mixed with Exparel, established large field blocks. Another 6 cm incision was made over the long axis of the lipoma. It was immediately in the subcutaneous space. Careful dissection was used to ensure its complete removal. Again, little bit of electrocautery was used to minimize bleeding. This also had features all consistent with a simple lipoma measuring approximately 4-1/2 cm long by 2 cm wide by 2 cm deep. The site was also reapproximated with deep Vicryl stitches, and a running subcuticular stitch before bandage was applied. Allie was then awoken from the anesthetic, and transferred back to the day surgery unit. Date of Procedure: 12/06/24
[2024-12-07 06:47] VITALS: BP 110/70; PULSE 54; RESP 16; TEMP 36.4; O2SAT 98
[2024-12-07] MEDS: Celecoxib 200 MG CAP PO (07:05)
[2024-12-07] MEDS: Gabapentin 300 MG CAP 600 MG PO (07:05)
[2024-12-07] MEDS: Acetaminophen 500 MG TAB 1000 MG PO (07:05)
[2024-12-07] MEDS: Lactated Ringers 1,000 ML 80 ML IV (07:13)
--- NOTE | 2024-12-07 07:31 | ANES.PREOP_ITS ---
General Info Date of Service Date Performed: 12/07/24 Height: 5 ft 6 in Weight: 90.9 kg Body Mass Index (BMI): 32.3 Surgical Procedure: Operation Date: 12/07/24 07:40 Proposed Procedure Side Surgeon p Excision Lipoma Flank x3 Left Ten Clemens MD Meds Allergies and Home Medications Allergies Allergy/AdvReac Type Severity Reaction Status Date / Time gluten AdvReac Severe triggers Verified 12/07/24 06:56 ulcerative colitis Home Medication ?Medication ?Instructions ?Recorded albuterol sulfate 90 mcg/actuation 2 puff inhalation Q ID PRN 08/19/24 aerosol inhaler (Ventolin HFA) shortness of breath or wheezing #8.5 grams bupropion HCl 300 mg 24 hr tablet, 300 mg PO QAM #90 t abs 08/19/24 extended release escitalopram oxalate 10 mg tablet 10 mg PO DAILY #90 t abs 08/19/24 levothyroxine 137 mcg tablet 137 mcg PO DAILY 90 days #90 tabs 10/25/24 (Synthroid) spacer for inhaler 1 inh continuous inhalation BID #1 10/28/24 ea budesonide-formoterol HFA 160 2 puff inhalation BID 30 days 11/15/24 mcg-4.5 mcg/actuation aerosol #10.2 grams inhaler (Symbicort) rosuvastatin 5 mg tablet 5 mg PO DAILY 90 days #90 ta bs 11/29/24 Current Visit Medications: Current Medications Generic Name Dose Route Start Last Admin Trade Name Freq PRN Reason Stop Dose Admin Acetaminophen 1,000 mg 12/07/24 06:00 12/07/24 07:05 Acetaminophen 500 Mg Tab PO 12/07/24 23:59 1,000 mg PREOP CARLOS Administration Celecoxib 200 mg 12/07/24 06:00 12/07/24 07:05 Celecoxib 200 Mg Cap PO 12/07/24 23:59 200 mg PREOP CARLOS Administration Gabapentin 600 mg 12/07/24 06:00 12/07/24 07:05 Gabapentin 300 Mg Cap PO 12/07/24 23:59 600 mg PREOP CARLOS Administration Hydromorphone HCl 0.2 mg 12/06/24 14:58 Hydromorphone 2 Mg/Ml Syr IVP 01/05/25 14:57 Q1H PRN PRN Ringer's Solution 1,000 mls @ 80 mls/hr 12/07/24 06:00 12/07/24 07:13 IV 12/07/24 23:59 80 mls/hr INFUSION CARLOS Administration IV Miscellaneous Supplies 1 each 12/07/24 06:00 Iv Access IV 12/07/24 23:59 DIRECTED CARLOS Sodium Chloride 0 ml 12/07/24 06:00 Normal Saline Flush 10 Ml Syr IV 12/07/24 23:59 PRN PRN Sodium Chloride 0 ml 12/07/24 06:00 Normal Saline 10 Ml Vial IJ 12/07/24 23:59 DIRECTED PRN Sterile Water 0 ml 12/07/24 06:00 Water,Injection,Sterile 10 Ml Vial IJ 12/07/24 23:59 DIRECTED PRN Tramadol HCl 50 mg 12/06/24 14:58 Tramadol 50 Mg Tab PO 01/05/25 14:57 Q6H PRN PRN Pain PFSH Active Problems Active Problems: Problem Status Onset Code 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 Pain in rib Acute R07.89 Lipoma Acute D17.9 Hypoglycemia Acute E16.2 Bee sting allergy Acute Z91.030 Carpal tunnel syndrome on both sides Acute G56.03 Exercise induced bronchospasm Acute J45.990 CKD (chronic kidney disease) stage 2, GFR 60-89 ml/min Acute N18.2 Lipoma of back Acute D17.1 Infection of nose Acute J34.89 Breast lump on left side at 11 o'clock position Acute ~03/2023 N63.22 Patellofemoral arthritis of left knee Acute M17.12 Left knee injury Acute S89.92XA Hypothyroidism Chronic E03.9 Anxiety Chronic F41.9 Depression Chronic F32.A Anemia Chronic D64.9 Medical History Medical History Hyperlipidemia Multiple benign nevi of upper extremity, lower extremity, and trunk also keratoses, guillen angiomas, seborrheic keratosis, cheilitis, Seen by [facility] Overweight Palpitation Graves disease Ulcerative proctitis Other specified abnormal uterine and vaginal bleeding Surgical History Surgical History History of tonsillectomy (~04/21/00) [facility] [place] [facility] [place] Tobacco Smoking/Tobacco Use Status: Never Passive smoking exposure: No Second hand exposure: No Alcohol Alcohol Intake: never Substance Use Substance use: Daily Substance use type: marijuana and other Details: gummies at night Details: THC Edible Gummies Daily Vital Signs and Lab Results Vital Signs Most Recent Vital Signs in EMR: Most Recent Vital Signs Temp Pulse Resp BP Pulse Ox 36.4 C L 54 L 16 110/70 98 12/07/24 06:47 12/07/24 06:47 12/07/24 06:47 12/07/24 06:47 12/07/24 06:47 Anesthesia Assessment and Plan Anesthesia History Personal History: No History of Anesthesia Complications Family History: No Family History of Anesthesia Complications Exercise Tolerance Exercise Tolerance: Metabolic Equivalents>4 Pertinent Negatives Pertinent Negatives: No Symptoms of GERD Cardiac & Pulmonary Exam Cardiac Exam: Normal S1/S2 Heart Sounds Pulmonary Exam: Clear Bilateral Breath Sounds (History of Asthma) Implantable Cardiac Device Does patient have a Pacemaker or an ICD?: No Airway Exam Known Difficult Airway: No Mallampati Class: 2 Mouth Opening: Normal (> 3cm) Thyromental Distance: Greater than 3 cm Neck Range of Motion: Full ROM Neck Circumference: Normal Teeth Condition: Normal Dentition ASA Classification ASA Score: ASA 2 Emergency Case?: No NPO Status NPO Status: NPO Clears >2 hours, Solids >8 hours Status Status: Not Relevant due to Medical History (Post Menopausal) Anesthesia Plan Resuscitation Status: Full Code Anesthesia Technique: General Anesthesia Airway Planned: Natural Airway Monitors Used: Standard Monitors
[2024-12-07 07:33] VITALS: BMI 32.3
[2024-12-07] MEDS: Bupivacaine LIPOSOME/PF 133 MG/10 ML VIAL IJ (08:47)
[2024-12-07] MEDS: Bupivacaine 0.25% Pres-Free 30 ML VIAL (08:47)
[2024-12-07 08:59] VITALS: BP 84/55; PULSE 60; RESP 16; TEMP 36.4; O2SAT 91
--- NOTE | 2024-12-07 09:11 | W.ANESPOSTOP ---
Postoperative Evaluation Date, Time and Location Date Performed: 12/07/24 Time Performed: 09:11 Patient Location: Day Surgery Unit Vital Signs Most Recent Imported Vital Signs: Most Recent Vital Signs Temp Pulse Resp BP Pulse Ox 36.4 C L 60 16 84/55 L 91 L 12/07/24 08:59 12/07/24 08:59 12/07/24 08:59 12/07/24 08:59 12/07/24 08:59 Pain Score Most Recent Pain Score: Most Recent Pain Score Pain Level 0 12/07/24 08:59 Assessment Mental Status: Awake (Alert & Oriented to Patient Baseline) Airway and Respiratory Function: Patent airway with normal (patient baseline) respiratory exam Cardiovascular Function: Hemodynamically Stable Hydration Status: Adequately Hydrated Nausea & Vomiting: No Nausea or Vomiting Pain: Pt. Denies Any Pain Peripheral Nerve Block: Patient did not receive a nerve block
[2024-12-07 09:32] VITALS: BP 101/68; PULSE 53; RESP 16; TEMP 36; O2SAT 98
== END 2024-12-07 09:50 | disposition home or self-care (01) ==
LOC: SUR 06:46
PROVIDERS: PCP Nurse Practitioner; Visit Provider Surgery
PROC: (CPT 11406; principal; 2024-12-07 07:30)
DX: D17.1 Benign lipomatous neoplasm of skin and subcutaneous tissue of trunk (principal)
CPT/HCPCS: 11406 ×2; 11402; J0131; J0665; J0666; J1100; J2003; J2405; J2704

== ENCOUNTER → 2024-12-17 03:16 | Outpatient (CLI) | payer OTHER, SELFPAY ==
--- NOTE | 2024-12-17 07:00 | DI.DEXA_ITS ---
Exam(s) XR DEXA BONE DENSITY W/WO NELI EXAM: XR DEXA BONE DENSITY W/WO NELI CLINICAL HISTORY: halfway thyroid use,ASYMPTOMATIC MENOPAUSAL STATE,z78.0 TECHNIQUE: Routine DEXA evaluation of the lumbar spine, hip, or forearm. COMPARISON: No exams were available for comparison FINDINGS: Performed on a Hologic unit. Lateral image: No compression fracture evident. Lumbar Spine total T-score: -2.7 which is osteoporosis range. Hip total T-score:By 0.9 which is within normal range. Independent reading at the level of the femoral neck yields T-score of -1.5 which is osteopenia range. Forearm total T-score: -1.5 which is osteopenia range. IMPRESSION: Bone mineral density measures in the osteopenia range for the wrist/forearm and hip. Fracture risk is moderate. Bone mineral density measures in osteoporosis range for the lumbar spine implying that fracture risk at this level is high. Note: Any spine fracture indicates 5x risk for subsequent spine fracture and 2x risk for subsequent hip fracture. World Health Organization criteria for BMD interpretation classify patients: Normal...... T- Score at or above -1.0 Osteopenic... T- Score between -1.0 and -2.5 Osteoporosis... T-Score at or below -2.5
== END ==
LOC: DI 03:17
PROVIDERS: PCP Nurse Practitioner; Visit Provider Family Medicine
DX: Z78.0 Asymptomatic menopausal state (principal)
CPT/HCPCS: 77080